=== PATIENT | female | born 1940 | race African-American/Black ===

== ENCOUNTER → 2016-08-17 | Outpatient (CLI) | payer MEDICARE, OTHER ==
[~2016-08-17] MED LIST: ACETAMINOPHEN650 M2 PO; ALLEGRA PO; APAP325 M1 PO; ASPIRIN325 M1 PO; AUGMENTIN PO; BLACK COHOSH540 MG PO; DAKIN'S MODIF1000 ML EXT; ELIQUIS5 MG PO; FLAX SEED OIL1000 M1 PO; FLAX SEED OIL1000 MG PO; HYDROCODON-ACE1 EAC9 PO; LOPRESSOR PO; MEDROL4 MG/DOSE- PO; MULTIVITAMIN1 UDCAP PO; NEURONTIN100 MG PO; NORVASC PO; OMEPRAZOLE40 M1 PO; PRO-STAT AWC LI30 ML PO; VICODIN 5/500 T1 TAB PO; VIT E PO; [UNRECOGNIZED DRUG - OTHER]
--- NOTE | ~2016-08-17 | US85 ---
[facility] A Service of [facility] RADIOLOGY TEXT RESULTS PATIENT: TRACEY UGALDE LOCATION: CNIV : 39 UNIT #: [id number] AGE: [address]: Anuj Geronimo MD SEX: F ORDER DR: [id number] [facility] [address] [facility]. [place], [place] [address] [id number] O MR#: [id number] Acc #: [id number] NAME: TRACEY UGALDE : 1940 SEX: F STUDY DATE/TIME: 08/17/2016 16:30 UNIT: CNIV ROOM: STUDY DESCRIPTION: [facility] or [facility] Attending Physician: Anuj Geronimo M.D. Referring Physician: Anuj Geronimo M.D. Ordering Physician: Anuj Geronimo M.D. Primary Care Physician: Anuj Geronimo M.D. MEDICAL IMAGING REPORT This report is preliminary unless electronic signature is present EXAM Right lower extremity venous duplex scan HISTORY Right leg pain and swelling FINDINGS High resolution B-mode imaging and color flow Doppler analysis was performed of the deep and superficial veins of the right lower extremity. All veins are fully compressible with no intraluminal thrombus. Spontaneous and phasic flow is noted in the right common femoral, deep femoral, femoral and popliteal veins. Flow is demonstrated in the right anterior tibial, posterior tibial and peroneal veins. Flow is present in the right great saphenous vein. IMPRESSION Normal venous examination of the right lower extremity. No deep or superficial vein thrombosis in the right leg. Dictated by... Neri Lopez M.D. THIS IS AN ELECTRONICALLY VERIFIED REPORT Neri Lopez M.D. at 08/19/2016 7:43 AM SBS/to TD: 08/17/2016 21:37 JOB #: [id number] MEDICAL IMAGING REPORT [facility] A Service of [facility] RADIOLOGY TEXT RESULTS PATIENT: TRACEY UGALDE LOCATION: CNIV : 39 UNIT #: [id number] AGE: [address]: Anuj Geronimo MD SEX: F ORDER DR: Page 1 of 1 COPY
== END | disposition home or self-care (01) ==
LOC: CNIV 15:48
DX: M79.89 Other specified soft tissue disorders (principal)
CPT/HCPCS: 93971